=== PATIENT | male | born 1965 | race Caucasian/White ===

== ENCOUNTER 2020-08-27 10:23 | Emergency (ER) | payer OTHER ==
[~2020-08-27] VITALS: Ht 180.3 cm; Wt 113.1 kg
[2020-08-27 10:32] VITALS: BP 145/99
[2020-08-27 12:31] LABS: BASOPHILS % (AUTO) 1 % (0-1); EOSINOPHILS % (AUTO) 4 % (1-7); LYMPHOCYTES % (AUTO) 30 % (22-44); MEAN CORPUSCULAR HEMOGLOBIN 30.3 pg (27.5-34.5); MEAN CORPUSCULAR HGB CONC 33.8 g/dL (33.2-36.2); MEAN PLATELET VOLUME 8.8 fL (7.4-10.4); MONOCYTES % (AUTO) 6 % (2-9); NEUTROPHILS % (AUTO) 58 % (42-75); PLATELET COUNT 164 x10^3/uL (130-400); RED BLOOD COUNT 4.85 x10^6/uL (4.38-5.82); RED CELL DISTRIBUTION WIDTH 13.9 % (9.4-14.8)
[2020-08-27 12:37] LABS: ANION GAP 3 mmol/L (5-15); CALCIUM 8.5 mg/dL (8.5-10.1); CHLORIDE 112 mmol/L (98-107)
[2020-08-27 12:38] LABS: CREATININE 0.98 mg/dL (0.7-1.3)
== END 2020-08-27 13:44 | disposition home or self-care (01) ==
LOC: ED 13:31
DX: M62.838 Other muscle spasm (principal)
CPT/HCPCS: 36415; 80048; 83735; 85025; 99283

== ENCOUNTER → 2020-11-29 | Outpatient (CLI) | payer OTHER | END | disposition home or self-care (01) | LOC: RAD 15:42 | PROVIDERS: ATTEND Nurse Practitioner Family | DX: K43.6 Other and unspecified ventral hernia with obstruction, without gangrene (principal); R10.30 Lower abdominal pain, unspecified | CPT/HCPCS: 76705 ==

== ENCOUNTER 2020-12-20 14:27 | Outpatient (CLI) | payer OTHER ==
[2020-12-20] MEDS ORDERED: None per pt. (15:18)
== END 2020-12-20 23:59 | disposition home or self-care (01) ==
LOC: STAR 14:27
PROVIDERS: ATTEND Surgery
DX: Z20.822 Contact with and (suspected) exposure to COVID-19 (principal); K43.2 Incisional hernia without obstruction or gangrene
CPT/HCPCS: U0003; U0005

== ENCOUNTER 2020-12-24 07:10 | Day surgery (SDC) | payer OTHER ==
[2020-12-20 15:07] VITALS: BP 149/89
[~2020-12-24] VITALS: Ht 180.3 cm; Wt 111.1 kg
[~2020-12-24 07:10] MED LIST: None per pt.
[2020-12-24 07:27] VITALS: BP 149/89
[2020-12-24] MEDS ORDERED: LACTATED RINGERS 1,000 ML IV SCH (07:30)
[2020-12-24] MEDS ORDERED: CHLORHEXIDINE 15 ML UDC PO ONE (07:30)
[2020-12-24] MEDS ORDERED: MIDAZOLAM 1 MG/ML, 2ML ONE (07:59)
[2020-12-24] MEDS ORDERED: FENTANYL PF 250 MCG/5ML ONE (07:59)
[2020-12-24] MEDS ORDERED: NEOSTIGMINE 1 MG/ML, 10ML ONE (08:00)
[2020-12-24] MEDS ORDERED: ROCURONIUM 10MG/ML,5ML ONE (08:00)
[2020-12-24] MEDS ORDERED: CEFAZOLIN 1,000 MG ONE (08:00)
[2020-12-24] MEDS ORDERED: PROPOFOL 10 MG/ML, 20ML ONE (08:00)
[2020-12-24] MEDS ORDERED: GLYCOPYRROLATE 0.2MG/1ML, 5ML ONE (08:00)
[2020-12-24] MEDS ORDERED: ONDANSETRON 2MG/ML, 2ML ONE (08:00)
[2020-12-24] MEDS ORDERED: BUPIVACAINE/PF 0.5% ONE (09:36)
[2020-12-24] MEDS ORDERED: EPINEPHRINE 1 MG/ML, 1ML ONE (09:36)
[2020-12-24] MEDS ORDERED: DEXAMETHASONE 4 MG/ML, 1ML ONE (09:45)
[2020-12-24] MEDS ORDERED: OXYcodone 5 MG/5 ML ORAL.SOL UDC PO PRN (10:00)
[2020-12-24] MEDS ORDERED: MEPERIDINE/PF 25MG/0.5ML IVPush PRN (10:00)
[2020-12-24] MEDS ORDERED: FENTANYL PF 100 MCG/2ML IV PRN (10:00)
[2020-12-24] MEDS ORDERED: ACETAMINOPHEN 325 MG TABLET PO PRN (10:00)
[2020-12-24] MEDS ORDERED: HALOPERIDOL 5 MG/ML IV PRN (10:00)
[2020-12-24] MEDS ORDERED: LABETALOL 5MG/ML, 20ML IV PRN (10:00)
[2020-12-24] MEDS ORDERED: hydrALAzine 20 MG/ML, 1ML IV PRN (10:00)
[2020-12-24] MEDS ORDERED: morphine SULFATE 10 MG/ML, 1ML IVPush PRN (10:00)
[2020-12-24] MEDS ORDERED: HYDROmorphone 1 MG/ML, 1ML INJ IVPush PRN (10:00)
[2020-12-24] MEDS ORDERED: PROMETHAZINE 25 MG/ML, 1ML IVPush PRN (10:00)
[2020-12-24] MEDS ORDERED: KETOROLAC 30 MG/1 ML ONE (10:03)
[2020-12-24] MEDS ORDERED: HYDR-2214 PO (10:24)
== END 2020-12-24 12:05 | disposition home or self-care (01) ==
LOC: OUT 07:10
PROVIDERS: ATTEND Surgery
DX: K43.0 Incisional hernia with obstruction, without gangrene (principal)
CPT/HCPCS: 49566; 49568; C1781; J0171; J0690; J1100; J1885; J2250; J2405; J2704; J2710; J3010; J7120